=== PATIENT | female | born 1995 | race American Indian/Alaskan Native ===

== ENCOUNTER 2021-11-03 16:26 | Emergency (ER) | payer MEDICAID ==
[2021-11-03 16:43] VITALS: BP 119/76
[2021-11-03] MEDS ORDERED: HYDROcodone/ACETAMINOPHEN 5-325 MG TAB PO ONE (17:29)
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
== END 2021-11-03 21:50 | disposition home or self-care (01) ==
LOC: ED 16:26
DX: Z04.1 Encounter for examination and observation following transport accident (principal); V89.2XXA Person injured in unspecified motor-vehicle accident, traffic, initial encounter; Y93.89 Activity, other specified; Y92.89 Other specified places as the place of occurrence of the external cause; Y99.8 Other external cause status
CPT/HCPCS: 99283

== ENCOUNTER 2021-12-17 12:19 | Emergency (ER) | payer MEDICAID, OTHER ==
[2021-12-17 13:09] VITALS: BP 129/78
== END 2021-12-17 19:40 | disposition left against medical advice (07) ==
LOC: ED 12:19
DX: M79.604 Pain in right leg (principal); Z53.21 Procedure and treatment not carried out due to patient leaving prior to being seen by health care provider; V89.2XXA Person injured in unspecified motor-vehicle accident, traffic, initial encounter; Y93.89 Activity, other specified; Y92.89 Other specified places as the place of occurrence of the external cause; Y99.8 Other external cause status